=== PATIENT | male | born 1995 | race American Indian/Alaskan Native ===

== ENCOUNTER 2020-01-15 08:11 | Emergency (ER) | payer SELFPAY ==
[2020-01-15 08:21] VITALS: BP 152/87
--- NOTE | 2020-01-15 11:18 | Emergency Department Report ---
Chief Complaint: Urogenital-Male Stated Complaint: STOMACH PAIN/GENITALS PAIN Time Seen by Provider: 01/15/20 11:14 - HPI History of Present Illness: The patient was evaluated in the emergency department for symptoms described in the history of present illness. He/she was evaluated in the context of the global COVID-19 pandemic, which necessitated consideration that the patient might be at risk for infection with the virus that causes COVID-19. Institutional protocols and algorithms that pertain to the evaluation of patients at risk for COVID-19 are in a state of rapid change based on information released by regulatory bodies including the CDC and federal and s hernandez organizations. These policies and algorithms were followed during the patient's care in the emergency department. Please note that these policies, procedures and recommendations changed on a rapid basis. 24-year-old -[place] male presents to the emergency room for penile discharge after having unprotected intercourse x1 day. Patient denies any fever chills no nausea no vomiting no abdominal pain. - Exam Vital Signs: Vital Signs 01/15/20 08:18 Temperature 98.0 F Pulse Rate 73 Respiratory 16 Rate Blood Pressure 152/87 O2 Sat by Pulse 100 Oximetry Physical Exam: Gen: alert oriented NAD Cardic: regular rate and rhythm no murmurs appreciated Resp: Clear to auscultation bilateral no wheezing no rales or rhonchi. Abdomen: Soft nontender nondistended normal bowel sounds. Ambulatory without difficulties. MSE screening note: Focused history and physical exam performed. Due to findings the following was ordered: 24-year-old -[place] male presents to the emergency room for penile discharge after having unprotected intercourse x1 day. Patient denies any fever chills no nausea no vomiting no abdominal pain. Community referral given to patient for resources for STD evaluation and treatment. ED Disposition for MSE Disposition: MED SCREENING EXAM-LEFT Is pt being admited?: No Does the pt Need Aspirin: No Condition: Stable Additional Instructions: These follow-up with one of the community resources. Referrals: PRIMARY MD GABY [Primary Care Provider] - 3-5 Days [facility] [Outside] - 3-5 Days [facility] [Outside] - 3-5 Days [facility] [Provider Group] - 3-5 Days
== END 2020-01-15 12:29 | disposition left against medical advice (07) ==
LOC: ED 08:11
DX: R10.9 Unspecified abdominal pain (principal); Z53.21 Procedure and treatment not carried out due to patient leaving prior to being seen by health care provider